=== PATIENT | female | born 1960 | race Caucasian/White ===

== ENCOUNTER 2024-07-03 15:17 | Outpatient (AMB) | payer MEDICARE, SELFPAY ==
--- NOTE | 2024-07-03 15:38 | PD.ORTHCLVIS ---
Vital signs 07/03/24 15:42 Height 1.52 m Height Method Stated Weight 83.234 kg Weight Measurement Method Standing Scale BMI 36.0 BP 134/74 H Blood Pressure Source Automatic Cuff Blood Pressure Location Right Upper Arm Position Sitting Respiration 19 Pulse 83 Pulse Source Monitor Temp 95.7 F L Temp Source Temporal Artery Scan Pulse Oximetry (%) 94 L Oxygen Delivery Method Room Air Med/Allergies Allergies & Medications Allergies No Known Allergies Allergy (Verified 07/03/24 15:43) Medication Reconciliation atorvastatin 20 mg tablet 20 mg PO QDAY 01/10/24 [History Confirmed 07/03/24] B6 1.7 mg-folic 400 mcg-B12 2.4 ylt-kkiylx-rzepmtazqxuk oral capsule (Neuriva Plus Brain Performance) 1 cap PO DAILY 06/16/24 [History Confirmed 06/16/24] ergocalciferol (vitamin D2) 1,250 mcg (50,000 unit) capsule (Vitamin D2) 1,250 mcg PO QWEEK 06/16/24 [History Confirmed 07/03/24] escitalopram oxalate 20 mg tablet (Lexapro) 20 mg PO QDAY 06/16/24 [History Confirmed 07/03/24] hydroxyzine HCl 50 mg tablet 50 mg PO TID PRN Anxiety 06/16/24 [History Confirmed 07/03/24] loperamide 2 mg capsule 2 mg PO Q4H PRN Diarrhea 06/16/24 [History Confirmed 07/03/24] multivitamin 1 tab PO QAM 06/16/24 [History Confirmed 07/03/24] aspirin 81 mg tablet,delayed release 81 mg PO BID #60 tabs 06/17/24 [Rx Confirmed 07/03/24] doxycycline hyclate 100 mg tablet 100 mg PO BID #14 tabs 06/17/24 [Rx Confirmed 07/03/24] gabapentin 300 mg capsule 300 mg PO .qhs #30 caps 06/17/24 [Rx] oxycodone 5 mg tablet 5 mg PO Q6H PRN pain #28 tabs 06/17/24 [Rx Confirmed 07/03/24] sennosides 8.6 mg-docusate sodium 50 mg tablet (Senna-S) 1 tab-cap PO QDAY #30 tabs 06/17/24 [Rx Confirmed 07/03/24] acetaminophen 300 mg-codeine 30 mg tablet 1 tab PO Q6H PRN pain #30 tabs 06/26/24 [Rx Confirmed 07/03/24] codeine sulfate 30 mg tablet 30 mg PO QID PRN pain #30 tabs 06/26/24 [Rx Confirmed 07/03/24] acetaminophen 500 mg tablet (Acetaminophen Extra Strength) 1,000 mg (2 x 500 mg) PO Q6H PRN pain #90 tabs 07/03/24 [Rx] pregabalin 75 mg capsule (Lyrica) 75 mg PO BID #60 caps 07/03/24 [Rx] Subjective Visit Visit for: follow up visit and knee Immunization / Flu Flu Vaccine in the Last 12 Months: Yes Flu Vaccine Exclusion Criteria: Already Received History of Present Illness Chief complaint: Left total hip replacement Patient is doing well status post left total hip replacement. She has minimal pain. She is very happy. Pain Pain level (0-10): 2 Pain duration: ON AND OFF Pain location: inside (medial) Pain quality: aching Associated signs & symptoms: none Ambulatory data Ambulatory device: none Treatments Improvement with previous injections: No Improvement with PT: No Improvement with NSAIDS: no Review of Systems Review of Systems: All systems negative unless otherwise noted in HPI. Exam Exam Patient is in no acute distress and is cooperative with the examination today. Breathing is nonlabored. In no respiratory distress. Patient has no paraspinal tenderness. Spinal deformity [cannot] be appreciated. The gait of the patient is antalgic Bilateral extremities were evaluated and demonstrates sensation intact to light touch. Palpable pedal pulses are present. No significant edema is present. Bilateral knees were examined and the patient has full strength and range of motion.. The right hip was examined. Patient was able to flex to 90 degrees, adduct to 30 degrees, abduct to 40 degrees, internally rotate to 20 degrees, and externally rotate to 20 degrees. Patient has a negative logroll. Stinchfield is negative. The patient is nontender diffusely to touch. Left hip incision is clean dry and intact. Assessment and Plan Problem List (1) Status post total hip replacement, left: Status: Acute Plan: Patient is doing well status post left total hip replacement. We will see her back in approximately 4 weeks with new x-rays. She is very happy with her progress and is starting outpatient physical therapy Office Procedures GNS Level of Care Nursing/Assessment Patient Status: Established Patient Nursing Assessment/Reassesment: Medication Reconciliation, Update PMH in EMR and Vital Signs Coordination of Care: Complex Care and Chronic Disease 1-5, Education Complex Pt/Fam, Consent,records obtained, informed consent and Staff clarify orders Established Patient Charge Established Patient Point Assignment: 90 Established Patient Point Charge: EP Level 3 (80-115) Past Medical History Past Medical History Have you ever been diagnosed with any of the following: Neurological Problems Seizures: No Cardiology Problems Hypercholesterolemia: Yes Congestive Heart Failure: No Respiratory Problems Chronic Obstructive Pulmonary Disease (COPD): No Smoking: No Smoking Exposure: No Stomache/Intestinal Problems Hepatitis: No Obesity: Yes Genital/Urinary Problems Renal Disease: No Reproductive Problems Previous Pregnancies: Yes Musculoskeletal Problems Arthritis: Yes Endocrine Problems Diabetes Mellitus Type 1: No Diabetes Mellitus Type 2: No Psychologic Problems Depression: Yes Anxiety: Yes Other Problems Hospitalization: Yes (surgery) Shingles: No Blood Transfusions: No Blood Transfusion Reaction: No Anesthesia Reactions: No Chicken Pox: Yes Measles: Yes Mumps: Yes Cancer: No
[2024-07-03 15:42] VITALS: BP 134/74; PULSE 83; RESP 19; TEMP 35.4; O2SAT 94; BMI 36.0
== END 2024-07-03 15:40 | disposition home or self-care (01) ==
LOC: HODSRG 15:17
PROVIDERS: PCP Family Medicine; Referring Provider Family Medicine; Supervising Provider Orthopaedic Surgery Adult Reconstructive Orthopaedic Surgery; Visit Provider Orthopaedic Surgery Adult Reconstructive Orthopaedic Surgery
DX: Z96.642 Presence of left artificial hip joint (principal); E78.00 Pure hypercholesterolemia, unspecified
CPT/HCPCS: 99213; G0463

== ENCOUNTER 2024-07-31 08:28 | Outpatient (AMB) | payer MEDICARE, MEDICAID, SELFPAY ==
[2024-07-31 08:58] VITALS: BP 127/76; PULSE 66; RESP 18; TEMP 36.3; O2SAT 92; BMI 35.3
--- NOTE | 2024-07-31 08:58 | PD.ORTHCLVIS ---
Vital signs 07/31/24 08:58 Height 1.52 m Height Method Stated Weight 81.647 kg Weight Measurement Method Standing Scale BMI 35.3 BP 127/76 Blood Pressure Source Automatic Cuff Blood Pressure Location Right Upper Arm Position Sitting Respiration 18 Pulse 66 Pulse Source Monitor Temp 97.4 F Temp Source Temporal Artery Scan Pulse Oximetry (%) 92 L Oxygen Delivery Method Room Air Med/Allergies Allergies & Medications Allergies No Known Allergies Allergy (Verified 07/31/24 09:00) Medication Reconciliation atorvastatin 20 mg tablet 20 mg PO QDAY 01/10/24 [History Confirmed 07/03/24] B6 1.7 mg-folic 400 mcg-B12 2.4 mah-smckau-vyzeojjljekq oral capsule (Neuriva Plus Brain Performance) 1 cap PO DAILY 06/16/24 [History Confirmed 07/03/24] ergocalciferol (vitamin D2) 1,250 mcg (50,000 unit) capsule (Vitamin D2) 1,250 mcg PO QWEEK 06/16/24 [History Confirmed 07/03/24] escitalopram oxalate 20 mg tablet (Lexapro) 20 mg PO QDAY 06/16/24 [History Confirmed 07/03/24] hydroxyzine HCl 50 mg tablet 50 mg PO TID PRN Anxiety 06/16/24 [History Confirmed 07/03/24] loperamide 2 mg capsule 2 mg PO Q4H PRN Diarrhea 06/16/24 [History Confirmed 07/03/24] multivitamin 1 tab PO QAM 06/16/24 [History Confirmed 07/03/24] aspirin 81 mg tablet,delayed release 81 mg PO BID #60 tabs 06/17/24 [Rx Confirmed 07/03/24] doxycycline hyclate 100 mg tablet 100 mg PO BID #14 tabs 06/17/24 [Rx Confirmed 07/03/24] gabapentin 300 mg capsule 300 mg PO .qhs #30 caps 06/17/24 [Rx Confirmed 07/03/24] acetaminophen 300 mg-codeine 30 mg tablet 1 tab PO Q6H PRN pain #30 tabs 06/26/24 [Rx Confirmed 07/03/24] codeine sulfate 30 mg tablet 30 mg PO QID PRN pain #30 tabs 06/26/24 [Rx Confirmed 07/03/24] acetaminophen 500 mg tablet (Acetaminophen Extra Strength) 1,000 mg (2 x 500 mg) PO Q6H PRN pain #90 tabs 07/03/24 [Rx Confirmed 07/03/24] pregabalin 75 mg capsule (Lyrica) 75 mg PO BID #60 caps 07/03/24 [Rx Confirmed 07/03/24] Subjective Visit Visit for: follow up visit and hip Immunization / Flu Flu Vaccine in the Last 12 Months: No Flu Vaccine Exclusion Criteria: No Exclusion Criteria History of Present Illness Chief complaint: POST OP HIP TKA Patient is doing well status post left total hip replacement. She has minimal pain. She is very happy. Personal History Occupation: RETIRED Pain Pain level (0-10): 0 Pain duration: ON AND OFF Pain location: inside (medial) Pain quality: aching Associated signs & symptoms: none Ambulatory data Ambulatory device: none Treatments Improvement with previous injections: No Improvement with PT: No Improvement with NSAIDS: n/a Review of Systems Review of Systems: All systems negative unless otherwise noted in HPI. Exam Exam Patient is in no acute distress and is cooperative with the examination today. Breathing is nonlabored. In no respiratory distress. Patient has no paraspinal tenderness. Spinal deformity [cannot] be appreciated. The gait of the patient is antalgic Bilateral extremities were evaluated and demonstrates sensation intact to light touch. Palpable pedal pulses are present. No significant edema is present. Bilateral knees were examined and the patient has full strength and range of motion.. The right hip was examined. Patient was able to flex to 90 degrees, adduct to 30 degrees, abduct to 40 degrees, internally rotate to 20 degrees, and externally rotate to 20 degrees. Patient has a negative logroll. Stinchfield is negative. The patient is nontender diffusely to touch. Left hip incision is clean dry and intact. Assessment and Plan Problem List (1) Status post total hip replacement, left: Status: Acute Plan: Patient is doing well status post left total hip replacement. She is doing well and did not get her x-rays. Will see her back in approximately 6 weeks to review her x-rays. She should finish her physical therapy. Office Procedures GNS Level of Care Nursing/Assessment Patient Status: Established Patient Nursing Assessment/Reassesment: Medication Reconciliation, Update PMH in EMR and Vital Signs Coordination of Care: Complex Care and Chronic Disease 1-5, Education Complex Pt/Fam, Consent,records obtained, informed consent, Results/Orders obtained and Staff clarify orders Established Patient Charge Established Patient Point Assignment: 95 Past Medical History Past Medical History Have you ever been diagnosed with any of the following: Neurological Problems Seizures: No Cardiology Problems Hypercholesterolemia: Yes Congestive Heart Failure: No Respiratory Problems Chronic Obstructive Pulmonary Disease (COPD): No Smoking: No Smoking Exposure: No Stomache/Intestinal Problems Hepatitis: No Obesity: Yes Genital/Urinary Problems Renal Disease: No Reproductive Problems Previous Pregnancies: Yes Musculoskeletal Problems Arthritis: Yes Endocrine Problems Diabetes Mellitus Type 1: No Diabetes Mellitus Type 2: No Psychologic Problems Depression: Yes Anxiety: Yes Other Problems Hospitalization: Yes (surgery) Shingles: No Blood Transfusions: No Blood Transfusion Reaction: No Anesthesia Reactions: No Chicken Pox: Yes Measles: Yes Mumps: Yes Cancer: No
== END 2024-07-31 09:27 | disposition home or self-care (01) ==
LOC: HODSRG 08:28
PROVIDERS: PCP Family Medicine; Referring Provider Family Medicine; Supervising Provider Orthopaedic Surgery Adult Reconstructive Orthopaedic Surgery; Visit Provider Orthopaedic Surgery Adult Reconstructive Orthopaedic Surgery
DX: Z96.642 Presence of left artificial hip joint (principal); E78.00 Pure hypercholesterolemia, unspecified
CPT/HCPCS: 99213; G0463

== ENCOUNTER 2024-08-05 11:30 | Outpatient (RCR) | payer MEDICARE, MEDICAID, SELFPAY ==
--- NOTE | 2024-07-15 10:03 | PT.ODAYNRPT ---
PT Outpatient Daily Note OP Daily Note Outpatient Physical Therapy Treatment Date: 07/15/24 Visit Reasons: Post op Left hip Subjective: Same as time of evaluation Objective: See F/S for therex Assessment: Low tissue irritability of L hip with resisted therex Plan: Continue per POC Length of Time (minutes) of Treatment: 30 Minutes Procedure Charges Therapeutic Exercise 30 minutes: Yes
--- NOTE | 2024-07-21 12:32 | PT.ODAYNRPT ---
PT Outpatient Daily Note OP Daily Note Outpatient Physical Therapy Treatment Date: 07/21/24 Visit Reasons: Post op Left hip Subjective: Doing HEP, trying to walk better Objective: See F/S for therex Assessment: Decreased stance time and WB on L LE Plan: Continue per POC Length of Time (minutes) of Treatment: 30 Minutes Procedure Charges Therapeutic Exercise 30 minutes: Yes
--- NOTE | 2024-07-23 11:04 | PTNOTE_ITS ---
PT Outpatient Daily Note OP Daily Note Outpatient Physical Therapy Treatment Date: 07/23/24 Visit Reasons: Post op Left hip Subjective: Pt reports L hip is sore and achy, pointing and mid and distal femur. Objective: Please see flow sheet for ther ex list. Assessment: Interventions given alternating sitting and standing to maximize pt participation. Plan: Continue with POC. Length of Time (minutes) of Treatment: 30 Minutes [employer] CONCRETE IRONWORKER Service Modifier Method I: Divide the number of min of care provided by the PRECAST CONCRETE IRONWORKER/PROJECT DESIGNER by the total min of care provided then multiply by 100. If greater than 11 percent modifier is required. Method II: Divide the total time of care provided to patient by 10 (round to the nearest whole number) and add 1 min. to set the minimum time requirement. If treatment total was 60 min., then 10% of 6 min PT CQ modifier applied: CQ Modifier applied Procedure Charges Therapeutic Exercise 30 minutes: Yes
--- NOTE | 2024-07-28 15:17 | PT.ODAYNRPT ---
PT Outpatient Daily Note OP Daily Note Outpatient Physical Therapy Treatment Date: 07/28/24 Visit Reasons: Post op Left hip Subjective: Doing HEP, trying to walk better Objective: See F/S for therex Assessment: Decreased lateral sway with slightly improved stance time and WB on L LE. Plan: Continue per POC Length of Time (minutes) of Treatment: 30 Minutes Procedure Charges Therapeutic Exercise 30 minutes: Yes
--- NOTE | 2024-07-30 11:05 | PT.ODAYNRPT ---
PT Outpatient Daily Note OP Daily Note Outpatient Physical Therapy Treatment Date: 07/30/24 Visit Reasons: Post op Left hip Subjective: Pt reports hip is doing better is trying to be more aware of how she walks to reduce her limp. Objective: Please see flow sheet for ther ex list. Assessment: Pt demonstrates poor heel strike and decrease stance phase on L hip but correct post verbal cu and instruction to decrease gait speed. Plan: Continue with POc, work on normalizing gait. Length of Time (minutes) of Treatment: 30 Minutes NURSE WOUND Service Modifier Method I: Divide the number of min of care provided by the NURSE WOUND/CAST IRON DRAIN PIPE LAYER by the total min of care provided then multiply by 100. If greater than 11 percent modifier is required. Method II: Divide the total time of care provided to patient by 10 (round to the nearest whole number) and add 1 min. to set the minimum time requirement. If treatment total was 60 min., then 10% of 6 min PT CQ modifier applied: CQ Modifier applied Procedure Charges Therapeutic Exercise 30 minutes: Yes
--- NOTE | 2024-08-05 13:51 | PT.ODAYNRPT ---
PT Outpatient Daily Note OP Daily Note Outpatient Physical Therapy Treatment Date: 08/05/24 Visit Reasons: Post op Left hip Subjective: Pt reports L hip is doing better, has been working on correcting gait. Pt shared that she does not have pain but feels hip is stiff. Objective: Please see flow sheet for ther ex list. Assessment: Pt instructed on step up exercise, tolerated well verbal cues to focus on foot placement and instruction for which foot to lead with. Plan: Continue with POC. Length of Time (minutes) of Treatment: 30 Minutes Procedure Charges Therapeutic Exercise 30 minutes: Yes
== END 2024-08-08 23:59 | disposition home or self-care (01) ==
LOC: CPTX 11:30
PROVIDERS: PCP Orthopaedic Surgery Adult Reconstructive Orthopaedic Surgery; Referring Provider Orthopaedic Surgery Adult Reconstructive Orthopaedic Surgery; Visit Provider Orthopaedic Surgery Adult Reconstructive Orthopaedic Surgery
DX: M25.552 Pain in left hip (principal); Z96.642 Presence of left artificial hip joint
CPT/HCPCS: 97110

== ENCOUNTER 2024-08-11 11:39 | Outpatient (RCR) | payer MEDICARE, MEDICAID, SELFPAY ==
--- NOTE | 2024-08-11 12:04 | PT.ODAYNRPT ---
PT Outpatient Daily Note OP Daily Note Outpatient Physical Therapy Treatment Date: 08/11/24 Visit Reasons: Post op left hip Subjective: Doing HEP, trying to walk better Objective: See F/S for therex Assessment: Decreased lateral sway with slightly improved stance time and WB on L LE. Plan: Continue per POC Length of Time (minutes) of Treatment: 30 Minutes Procedure Charges Therapeutic Exercise 30 minutes: Yes
--- NOTE | 2024-08-13 16:16 | PT.ODS1RPT ---
PT OP Progress/Discharge Note Date of Service: 08/13/24 Progress Note/DC Note Progress Note/Discharge Note: DC Note Patient Information Visit Reasons: Post op left hip Service Continue Service or Discharge: Discharge Discharge Date: 08/13/24 Status Subjective: Pt called to say she will be out of town until the end of September and won't be able to come to therapy anymore. Objective: No Rx, no charges today Assessment: Pt has attended the eval and 6 Rx sessions with good progress with therapy goals. Plan: Self-D/C
== END 2024-09-08 23:59 | disposition home or self-care (01) ==
LOC: CPTX 11:39
PROVIDERS: PCP Orthopaedic Surgery Adult Reconstructive Orthopaedic Surgery; Referring Provider Orthopaedic Surgery Adult Reconstructive Orthopaedic Surgery; Visit Provider Orthopaedic Surgery Adult Reconstructive Orthopaedic Surgery
DX: M25.552 Pain in left hip (principal); Z96.642 Presence of left artificial hip joint
CPT/HCPCS: 97110

== ENCOUNTER → 2024-12-09 | Outpatient (CLI) | payer MEDICARE, MEDICAID, SELFPAY ==
--- NOTE | 2024-12-09 13:50 | XR_ITS ---
Examination:Left hip AP, lateral, AP pelvis 3 views Technique: Hip AP lateral, AP pelvis, 3 views Exam date and time:December 09, 2024 1410 hours INDICATIONS: Status post left hip arthroplasty 6 months ago FINDINGS: Stable and satisfactory alignment total left hip arthroplasty compared with June 17, 2024 Moderate to advanced narrowing right hip joint No fracture IMPRESSION: Total left hip arthroplasty with satisfactory alignment.
== END | disposition home or self-care (01) ==
PROVIDERS: PCP Physician Assistant; Referring Provider Orthopaedic Surgery Adult Reconstructive Orthopaedic Surgery; Visit Provider Orthopaedic Surgery Adult Reconstructive Orthopaedic Surgery
DX: M16.12 Unilateral primary osteoarthritis, left hip (principal); Z96.642 Presence of left artificial hip joint
CPT/HCPCS: 73502

== ENCOUNTER 2024-12-11 11:11 | Outpatient (AMB) | payer MEDICARE, MEDICAID, SELFPAY ==
[2024-12-11 11:57] VITALS: BP 107/67; PULSE 58; RESP 18; TEMP 36.6; O2SAT 94; BMI 34.0
--- NOTE | 2024-12-11 11:57 | ORTHONT_ITS ---
Vital signs 12/11/24 11:57 Height 1.52 m Height Method Stated Weight 78.67 kg Weight Measurement Method Standing Scale BMI 34.0 BP 107/67 Blood Pressure Source Automatic Cuff Blood Pressure Location Right Upper Arm Position Sitting Respiration 18 Pulse 58 L Pulse Source Monitor Temp 97.8 F Temp Source Temporal Artery Scan Pulse Oximetry (%) 94 L Oxygen Delivery Method Room Air Med/Allergies Allergies & Medications Allergies No Known Allergies Allergy (Verified 12/11/24 11:58) Medication Reconciliation atorvastatin 20 mg tablet 20 mg PO QDAY 01/10/24 [History Confirmed 12/11/24] B6 1.7 mg-folic 400 mcg-B12 2.4 tpu-atjjfi-sqqnvndswgay oral capsule (Neuriva Plus Brain Performance) 1 cap PO DAILY 06/16/24 [History Confirmed 12/11/24] ergocalciferol (vitamin D2) 1,250 mcg (50,000 unit) capsule (Vitamin D2) 1,250 mcg PO QWEEK 06/16/24 [History Confirmed 12/11/24] escitalopram oxalate 20 mg tablet (Lexapro) 20 mg PO QDAY 06/16/24 [History Confirmed 12/11/24] hydroxyzine HCl 50 mg tablet 50 mg PO TID PRN Anxiety 06/16/24 [History Confirmed 12/11/24] loperamide 2 mg capsule 2 mg PO Q4H PRN Diarrhea 06/16/24 [History Confirmed 12/11/24] multivitamin 1 tab PO QAM 06/16/24 [History Confirmed 12/11/24] aspirin 81 mg tablet,delayed release 81 mg PO BID #60 tabs 06/17/24 [Rx Confirmed 12/11/24] doxycycline hyclate 100 mg tablet 100 mg PO BID #14 tabs 06/17/24 [Rx Confirmed 12/11/24] gabapentin 300 mg capsule 300 mg PO .qhs #30 caps 06/17/24 [Rx Confirmed 12/11/24] acetaminophen 300 mg-codeine 30 mg tablet 1 tab PO Q6H PRN pain #30 tabs 06/26/24 [Rx Confirmed 12/11/24] codeine sulfate 30 mg tablet 30 mg PO QID PRN pain #30 tabs 06/26/24 [Rx Confirmed 12/11/24] acetaminophen 500 mg tablet (Acetaminophen Extra Strength) 1,000 mg (2 x 500 mg) PO Q6H PRN pain #90 tabs 07/03/24 [Rx Confirmed 12/11/24] pregabalin 75 mg capsule (Lyrica) 75 mg PO BID #60 caps 07/03/24 [Rx Confirmed 12/11/24] Exam Exam Patient is in no acute distress and is cooperative with the examination today. Breathing is nonlabored. In no respiratory distress. Patient has no paraspinal tenderness. Spinal deformity [cannot] be appreciated. The gait of the patient is antalgic Bilateral extremities were evaluated and demonstrates sensation intact to light touch. Palpable pedal pulses are present. No significant edema is present. Bilateral knees were examined and the patient has full strength and range of motion.. The right hip was examined. Patient was able to flex to 90 degrees, adduct to 30 degrees, abduct to 40 degrees, internally rotate to 20 degrees, and externally rotate to 20 degrees. Patient has a negative logroll. Stinchfield is negative. The patient is nontender diffusely to touch. Left hip incision is clean dry and intact. Lef tottal hip replacement is in good alignment and position Assessment and Plan Problem List (1) Status post total hip replacement, left: Status: Acute Plan: Patient is doing well status post left total hip replacement. She is doing well postop and is 1 year out Office Procedures GNS Level of Care Nursing/Assessment Patient Status: Established Patient Nursing Assessment/Reassesment: Medication Reconciliation, Update PMH in EMR and Vital Signs Coordination of Care: Complex Care and Chronic Disease 1-5, Education Complex Pt/Fam, Consent,records obtained, informed consent, Results/Orders obtained and Staff clarify orders Established Patient Charge Established Patient Point Assignment: 95 Established Patient Point Charge: EP Level 3 (80-115) MA Intake Visit Data Collection New Patient or Established: Established Patient (seen at [facility] within 3 years) Reason for Visit:: 6 MONTH POST OP LEFT JAY Seen by Clinical Staff ONLY (RN/MA): No Verbal consent obtained for Telemed visit?: No Tape Making Machine Operator Required: No PCP or OBGYN visit in last 3 months: Yes Hx Now: No Do You Feel Safe at Home: Yes Authorities Contacted: N/A Questionairres Past Medical History Past Medical History Have you ever been diagnosed with any of the following: Neurological Problems Seizures: No Cardiology Problems Hypercholesterolemia: Yes Congestive Heart Failure: No Respiratory Problems Chronic Obstructive Pulmonary Disease (COPD): No Smoking: No Smoking Exposure: No Stomache/Intestinal Problems Hepatitis: No Obesity: Yes Genital/Urinary Problems Renal Disease: No Reproductive Problems Previous Pregnancies: Yes Musculoskeletal Problems Arthritis: Yes Endocrine Problems Diabetes Mellitus Type 1: No Diabetes Mellitus Type 2: No Psychologic Problems Depression: Yes Anxiety: Yes Other Problems Hospitalization: Yes (surgery) Shingles: No Blood Transfusions: No Blood Transfusion Reaction: No Anesthesia Reactions: No Chicken Pox: Yes Measles: Yes Mumps: Yes Cancer: No Subjective Visit Visit for: follow up visit, post op #3 and hip Immunization / Flu Flu Vaccine in the Last 12 Months: Yes Flu Vaccine Exclusion Criteria: Already Received History of Present Illness Chief complaint: 6 month follow left jay Patient is doing well s/p l JAY one year ago. She has no issues at all. Pain Pain level (0-10): 0 Associated signs & symptoms: none Ambulatory data Ambulatory device: none Treatments Improvement with previous injections: No Improvement with PT: No Improvement with NSAIDS: no Review of Systems Review of Systems: All systems negative unless otherwise noted in HPI.
== END 2024-12-11 12:52 | disposition home or self-care (01) ==
LOC: HODSRG 11:11
PROVIDERS: Supervising Provider Orthopaedic Surgery Adult Reconstructive Orthopaedic Surgery; Visit Provider Orthopaedic Surgery Adult Reconstructive Orthopaedic Surgery
DX: Z96.642 Presence of left artificial hip joint (principal); E78.00 Pure hypercholesterolemia, unspecified
CPT/HCPCS: 99213; G0463